=== PATIENT | male | born 1980 | race Two or more races ===

== ENCOUNTER 2019-02-25 10:03 | Emergency (ER) | payer OTHER ==
[~2019-02-25] VITALS: Ht 182.9 cm; Wt 110.2 kg
[2019-02-25] MEDS ORDERED: LIDOCAINE 1%-EPI 1:100,000 20 ML VIAL TP ONE (11:00)
[2019-02-25] MEDS ORDERED: TDAP DIPH,PERTUSS,TET VAC/PF 0.5 ML DISP.SYRIN IM ONE ×2 (11:29→11:30)
[2019-02-25] MEDS ORDERED: NEOMY/BACITRA/POLYMYXIN B OINT UD PACKET TP ONE ×2 (11:41→11:45)
--- NOTE | 2019-02-25 11:49 | NUR ---
PATIENT HAS A SMALL LAC ON WRIST. DR BRYANT LACED SUTURES. STERILE DRESSING WAS PLACE OVER IT INSTRUCTED. DC AND FOLLOW UP INSTRUCTIONS GIVEN AND EXPLAINED TO PATIENT WHO STATES HE UNDERSTANDS ALL INSTRUCTIONS
== END 2019-02-25 11:51 | disposition home or self-care (01) ==
LOC: ER 10:03
DX: S61.512A Laceration without foreign body of left wrist, initial encounter (principal); W26.8XXA Contact with other sharp object(s), not elsewhere classified, initial encounter; Y93.89 Activity, other specified; Y92.89 Other specified places as the place of occurrence of the external cause; Y99.0 Civilian activity done for income or pay
CPT/HCPCS: 12001; 90471; 90715; 99283; J3490; A4663

== ENCOUNTER 2019-02-26 19:01 | Emergency (ER) | payer OTHER ==
[~2019-02-26] VITALS: Ht 180.3 cm; Wt 113.9 kg
[2019-02-26] MEDS ORDERED: SULFAMETH/TRIMETH 800/160 MG TABLET ONE (20:08)
[2019-02-26] MEDS ORDERED: SULFAMETH/TRIMETH 800/160 MG TABLET PO ONE (20:15)
--- NOTE | 2019-02-26 20:15 | NUR ---
PT ABLE TO TOLERATE PO MEDS ORDERED
--- NOTE | 2019-02-26 20:25 | NUR ---
Patient discharged to home in stable conditon. Written and verbal after care instructions given. Patient verbalizes understanding of instructions. AMBULATORY W/ STABLE GAIT ALL BELONGINGS W/ PT
[2019-02-27 03:52] VITALS: BP 139/84
== END 2019-02-26 20:25 | disposition home or self-care (01) ==
LOC: ER 19:02
DX: S61.412D Laceration without foreign body of left hand, subsequent encounter (principal); L08.9 Local infection of the skin and subcutaneous tissue, unspecified; W26.8XXD Contact with other sharp object(s), not elsewhere classified, subsequent encounter
CPT/HCPCS: A4663

== ENCOUNTER 2019-03-07 18:16 | Emergency (ER) | payer OTHER ==
[~2019-03-07] VITALS: Ht 177.8 cm; Wt 113.4 kg
--- NOTE | 2019-03-07 18:32 | NUR ---
Patient discharged to home in stable conditon. Written and verbal after care instructions given. Patient verbalizes understanding of instructions.
== END 2019-03-07 18:33 | disposition home or self-care (01) ==
LOC: ER 18:18
DX: S61.512D Laceration without foreign body of left wrist, subsequent encounter (principal); X58.XXXD Exposure to other specified factors, subsequent encounter
CPT/HCPCS: A4663